=== PATIENT | female | born 1960 | race Caucasian/White ===

== ENCOUNTER 2016-08-05 16:26 | Emergency (ER) | payer OTHER ==
[2016-08-05 16:50] VITALS: TEMP 97.5
--- NOTE | 2016-08-05 17:03 | EDPHY ---
H & P Stated Complaint: Right knee warm to touch, facial tingling/numbness, left hand tingling/numb Time Seen by Provider: 08/05/16 16:46 HPI/ROS: CHIEF COMPLAINT: Right knee warmth HISTORY OF PRESENT ILLNESS: The patient is a 55-year-old female who comes to the emergency department complaining of tingling throughout her entire body as well as some increased warmth in her right knee. She had her knee scoped [address] Julieth Bsuh. She had meniscus repair. She states that the swelling has gradually improved each day but that today her knee feels more warm than previously. She also has had it off of ice for longer than ever before. She is able to ambulate without significant pain. She states that she has tingling throughout her entire body. It is most pronounced in her left arm however this is not unusual for her because she has a history of radiculopathy in that arm. She is followed by Dr. Ray for this. She has had injections previously been no surgeries. She has no weakness or nerve deficits. She denies chest pain or shortness of breath. REVIEW OF SYSTEMS: Constitutional: denies: chills, fever, recent illness, recent injury EENTM: denies: blurred vision, double vision, nose congestion Respiratory: denies: cough, shortness of breath Cardiac: denies: chest pain, irregular heart rate, lightheadedness, palpitations Gastrointestinal/Abdominal: denies: abdominal pain, diarrhea, nausea, vomiting, blood streaked stools Genitourinary: denies: dysuria, frequency, hematuria, pain Musculoskeletal: See HPI Skin: See HPI Neurological: denies: headache, numbness, paresthesia, tingling, dizziness, weakness Hematologic/Lymphatic: denies: blood clots, easy bleeding, easy bruising Immunologic/allergic: denies: HIV/AIDS, transplant EXAM: GENERAL: Well-appearing, well-nourished and in no acute distress. HEAD: Atraumatic, normocephalic. EYES: Pupils equal round and reactive to light, extraocular movements intact, sclera anicteric, conjunctiva are normal. ENT: TMs normal, nares patent, oropharynx clear without exudates. Moist mucous membranes. NECK: Normal range of motion, supple without lymphadenopathy or JVD. LUNGS: Breath sounds clear to auscultation bilaterally and equal. No wheezes rales or rhonchi. HEART: Regular rate and rhythm without murmurs, rubs or gallops. ABDOMEN: Soft, nontender, normoactive bowel sounds. No guarding, no rebound. No masses appreciated. BACK: No CVA tenderness, no spinal tenderness, step-offs or deformities EXTREMITIES: Right knee slightly swollen, normal range of motion, slightly warm to the touch. Mild erythema in a blotchy pattern. NEUROLOGICAL: Cranial nerves II through XII grossly intact. Normal speech, normal gait. 5/5 strength, normal movement in all extremities, normal sensation PSYCH: Normal mood, normal affect. SKIN: Warm, dry, normal turgor, no visible rashes or lesions. Source: Patient Exam Limitations: No limitations - Personal History Current Tetanus/Diphtheria Vaccine: Yes Tetanus Vaccine Date: ~ 4YRS AGO - Medical/Surgical History Hx Asthma: No Hx Chronic Respiratory Disease: No Hx Diabetes: No Hx Cardiac Disease: No Hx Renal Disease: No Hx Cirrhosis: No Hx Alcoholism: No Hx HIV/AIDS: No Hx Splenectomy or Spleen Trauma: No Other PMH: thyroid, right knee mcl repair 06/2016 - Family History Significant Family History: No pertinent family hx - Social History Smoking Status: Current every day smoker Alcohol Use: Sober Drug Use: None Constitutional: Initial Vital Signs Temperature (C) 36.4 C 08/05/16 16:47 Heart Rate 82 08/05/16 16:47 Respiratory Rate 16 08/05/16 16:47 Blood Pressure 159/100 H 08/05/16 16:47 O2 Sat (%) 98 08/05/16 16:47 O2 Delivery Mode Room Air Allergies/Adverse Reactions: No Known Allergies Allergy (Verified 08/05/16 16:50) Home Medications: Medication Instructions Recorded Levothyroxine [Synthroid] 125 mcg PO DAILY@1000 05/14/11 Cephalexin [Keflex] 500 mg PO TID #21 cap 08/05/16 Medical Decision Making ED Course/Re-evaluation: Is difficult to tell whether the patient's knee is simply improving slowly from her surgery or if this is an early sign of infection. We agreed to write her prescription for antibiotics and if it seems to be worsening tomorrow she will begin taking them. She does not have a fever. She does not have significant pain in the area. Also discussed her diffuse body tingling. I do not have an explanation for this. It is not consistent with a stroke or local neuropathy. It is not is consistent with acute coronary disease or PE. She declines further workup or testing at this time. She states that she will try to eat better and remain hydrated. She has not had much to eat today. We discussed indications for returning. Differential Diagnosis: Partial list of the Differential diagnosis considered include but were not limited to; postoperative infection, cellulitis, postoperative recovery and although unlikely based on the history and physical exam, I also considered PE, acute coronary disease, CVA, electrolyte abnormality, sepsis. I discussed these differential diagnoses and the plan with the patient as well as the usual and expected course. The patient understands that the diagnosis is provisional and that in medicine we are not always correct and that further workup is often warranted. Usual and customary warnings were given. All of the patient's questions were answered. The patient was instructed to return to the emergency department should the symptoms at all worsen or return, otherwise to followup with the physician as we discussed. Departure - Departure Disposition: Home, Routine, Self-Care Clinical Impression: Knee pain Qualifiers: Laterality: right Chronicity: acute Qualified Code(s): M25.561 - Pain in right knee Condition: Fair Instructions: Swollen Knee Joint (ED) Referrals: Marielena Lundberg MD [Primary Care Provider] - As per Instructions Julieth Bush MD [Medical Doctor] - As per Instructions Prescriptions: Cephalexin [Keflex] 500 mg PO TID #21 cap
[2016-08-05 17:25] VITALS: BP 154/104; PULSE 76; RESP 18; O2SAT 96
== END 2016-08-05 17:23 | disposition home or self-care (01) ==
LOC: CED 16:26
DX: M25.561 Pain in right knee (principal); F17.200 Nicotine dependence, unspecified, uncomplicated

== ENCOUNTER 2016-10-03 16:44 | Emergency (ER) | payer OTHER ==
[2016-10-03 16:56] VITALS: BP 136/81; PULSE 70; RESP 16; TEMP 98.6; O2SAT 97
--- NOTE | 2016-10-03 17:32 | EDPHY ---
H & P Time Seen by Provider: 10/03/16 17:23 HPI/ROS: This patient has redness to the left eye lateral to the iris since rubbing her eye 50 minutes prior to arrival. She has never had this occur to her before. She has no other associated symptoms. She had no ocular symptoms prior to rubbing her eye. She does not take aspirin or use other blood thinners ROS: No fevers or other constitutional symptoms HEENT: No recent trauma other than rubbing her eye Ophtho: No discharge. No lids or lashes complaints. No vision changes. No pain to the eye Integumentary: No rash or other complaints Hematologic: No easy bruising recently. Smoking Status: Current every day smoker Physical Exam: Physical Exam Vital signs are normal. General: No acute distress HEENT: Atraumatic. Eyes: Pupils equal and react to light. Extraocular motions are intact. Patient of the sharply demarcated redness lateral to the iris in the left eye is small area less than a cm in size. On slit-lamp exam there is no abnormalities to the cornea. No hyphema hypopyon. No foreign bodies. Lids and lashes are normal. Right eye exam is normal Cardiac: Brisk capillary refill is intact throughout. Skin: No rash or pallor. No bruising Neuro: Alert and oriented x3 with no sensorimotor deficits. Constitutional: Initial Vital Signs Temperature (C) 37 C 10/03/16 16:47 Heart Rate 70 10/03/16 16:47 Respiratory Rate 16 10/03/16 16:47 Blood Pressure 136/81 H 10/03/16 16:47 O2 Sat (%) 97 10/03/16 16:47 O2 Delivery Mode Room Air Allergies/Adverse Reactions: No Known Allergies Allergy (Verified 10/03/16 16:55) Home Medications: Medication Instructions Recorded Levothyroxine Sodium 10/03/16 Tramadol HCl 10/03/16 MDM/Departure - MDM ED Course/Re-evaluation: Discussion: Findings consistent with subconjunctival hemorrhage without evidence of other ocular trauma, bleeding diatheses or other concerning findings. I counseled the patient regarding subconjunctival hemorrhage and what to expect. - Depart Disposition: Home, Routine, Self-Care Clinical Impression: Subconjunctival hemorrhage of left eye Condition: Good Instructions: Subconjunctival Hemorrhage (ED) Additional Instructions: Diagnosis: Subconjunctival hemorrhage Plan: Avoid aspirin for the next 2 weeks. This will typically gradually resolve over the course of 10-14 days. 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
== END 2016-10-03 17:41 | disposition home or self-care (01) ==
LOC: CED 16:44
DX: H11.32 Conjunctival hemorrhage, left eye (principal); F17.200 Nicotine dependence, unspecified, uncomplicated; X58.XXXA Exposure to other specified factors, initial encounter

== ENCOUNTER → 2017-01-06 | Outpatient (CLI) | payer OTHER | LOC: CIMAGING 08:15 | PROVIDERS: ATTEND Family Medicine | DX: Z12.31 Encounter for screening mammogram for malignant neoplasm of breast (principal) | CPT/HCPCS: G0202 ==

== ENCOUNTER → 2018-02-28 | Outpatient (CLI) | payer OTHER | LOC: CIMAGING 12:19 | PROVIDERS: ATTEND Family Medicine | DX: Z12.31 Encounter for screening mammogram for malignant neoplasm of breast (principal); Z80.3 Family history of malignant neoplasm of breast ==

== ENCOUNTER → 2018-03-07 | Outpatient (CLI) | payer OTHER | LOC: CIMAGING 13:16 | PROVIDERS: ATTEND Family Medicine | DX: R92.8 Other abnormal and inconclusive findings on diagnostic imaging of breast (principal) | CPT/HCPCS: 76641-PO ==